=== PATIENT | male | born 1995 | race Two or more races ===

== ENCOUNTER 2020-09-13 18:06 | Emergency (ER) | payer MEDICAID ==
[~2020-09-13] VITALS: Ht 182.9 cm; Wt 61.0 kg
[2020-09-13] MEDS ORDERED: IBUPROFEN 600MG TABLET PO ONE (18:45)
[2020-09-13 18:59] VITALS: BP 145/73
== END 2020-09-13 20:00 | disposition home or self-care (01) ==
LOC: ER 18:06
DX: R07.89 Other chest pain (principal); J45.909 Unspecified asthma, uncomplicated
CPT/HCPCS: 71045; 93005; 99283